=== PATIENT | male | born 2000 ===

== ENCOUNTER 2024-12-05 19:25 | Emergency (ER) | payer OTHER ==
[2024-12-05 19:43] VITALS: BP 131/57; PULSE 99; RESP 18; TEMP 98.9; BMI 28.1
[2024-12-05] MEDS ORDERED: ALBUTEROL SO4 2.5/IPRATROPIUM 0.5 INH SOL 3 ML VIAL.NEB. NEB ONE ×2 (20:08→21:04)
[2024-12-05] MEDS: ALBUTEROL SO4 2.5/IPRATROPIUM 0.5 INH SOL 3 ML VIAL.NEB. NEB ONE ×2 (20:19→21:09)
[2024-12-05] MEDS ORDERED: predniSONE 20 MG TABLET (UD) ONE (21:05)
[2024-12-05] MEDS: predniSONE 20 MG TABLET (UD) PO ONE (21:09)
[2024-12-05] MEDS: SODIUM CHLORIDE FOR INHALATION 3 ML VIAL.NEB IH ONE (21:09)
== END 2024-12-05 22:00 | disposition home or self-care (01) ==
LOC: JER 19:25
PROC: 3E0F7GC Introduction of Other Therapeutic Substance into Respiratory Tract, Via Natural or Artificial Opening (ICD-10-PCS; principal; 2024-12-05)
PROC: 3E0F7GC Introduction of Other Therapeutic Substance into Respiratory Tract, Via Natural or Artificial Opening (ICD-10-PCS; 2024-12-05)
DX: J45.901 Unspecified asthma with (acute) exacerbation (principal); J06.9 Acute upper respiratory infection, unspecified; R05.9 Cough, unspecified; R07.89 Other chest pain; R43.8 Other disturbances of smell and taste
CPT/HCPCS: 87637-QW; 99284-25